=== PATIENT | female | born 1960 | race Caucasian/White ===

== ENCOUNTER 2022-07-17 11:12 | Day surgery (SDC) | payer MEDICAID ==
[~2022-07-17] VITALS: Ht 149.9 cm; Wt 81.8 kg
[~2022-07-17 11:12] MED LIST: ALBU6.7H14 INH; SPIIN INH
[2022-07-17 11:50] VITALS: BP 135/85
[2022-07-17] MEDS ORDERED: IBUP-1985 PO (12:28)
[2022-07-17] MEDS ORDERED: METF-438 PO (12:28)
[2022-07-17] MEDS ORDERED: ATOR20TA10 PO (12:28)
[2022-07-17] MEDS ORDERED: EST1T PO (12:28)
[2022-07-17] MEDS ORDERED: ATOR40TA7 PO (12:28)
[2022-07-17] MEDS ORDERED: MIDAZolam 1 MG/ML 5ML VIAL ONE (12:47)
[2022-07-17] MEDS ORDERED: fentaNYL/PF 50MCG/1 ML 2ML syringe ONE (12:47)
[2022-07-17 13:17] VITALS: BP 109/68
[2022-07-17 13:27] VITALS: BP 128/77
[2022-07-17 13:37] VITALS: BP 130/79
[2022-07-17 13:47] VITALS: BP 128/78
== END 2022-07-17 14:00 | disposition home or self-care (01) ==
LOC: GI LAB 11:12
PROVIDERS: ATTEND Internal Medicine Gastroenterology
DX: D12.3 Benign neoplasm of transverse colon (principal); K57.30 Diverticulosis of large intestine without perforation or abscess without bleeding; K55.20 Angiodysplasia of colon without hemorrhage; K64.8 Other hemorrhoids
CPT/HCPCS: 45385; 45388; 99152; C1773; J2250; J3010; J7030; Z7512; 99153; A4620; C1889

== ENCOUNTER → 2024-04-15 | Outpatient (CLI) | payer MEDICARE, MEDICAID ==
[~2024-04-15] MED LIST changes: +ATOR-411 PO; +ATOR20TA10 PO; +EST1T PO; +IBUP-1985 PO; +METF-438 PO
== END | disposition home or self-care (01) ==
LOC: RAD 14:41
PROVIDERS: ATTEND Internal Medicine Critical Care Medicine
DX: Z12.2 Encounter for screening for malignant neoplasm of respiratory organs (principal); R91.1 Solitary pulmonary nodule; J43.9 Emphysema, unspecified; Z87.891 Personal history of nicotine dependence
CPT/HCPCS: 71271